=== PATIENT | male | born 1960 | race African-American/Black ===

== ENCOUNTER 2017-05-15 17:59 | Emergency (ER) | payer SELFPAY, OTHER ==
--- NOTE | ~2017-05-15 | EKG ---
PATIENT: APURVA PALOMO UNIT #: [id number] Ventricular Rate: 77 BPM Atrial Rate: 77 BPM P-R Interval: 178 ms QRS Duration: 102 ms Q-T Interval: 414 ms QTC Calculation(Bezet): 468 ms P [place]: -19 degrees Calculated R [place]: 13 degrees Calculated T [place]: 57 degrees Diagnosis Line: Normal sinus rhythm with sinus arrhythmia Diagnosis Line: Minimal voltage criteria for LVH, may be normal Diagnosis Line: variant Diagnosis Line: Nonspecific T wave abnormality Diagnosis Line: Prolonged QT Diagnosis Line: Abnormal ECG Diagnosis Line: When compared with ECG of 31-DEC-2014 08:21, Diagnosis Line: No significant change was found Diagnosis Line: Confirmed by DANILO ESTEVEZ MD ([id number]) on Diagnosis Line: 05/16/2017 5:16:01 PM INTERPRETING MD: [email or web address]
[~2017-05-15 17:59] MED LIST: AMLODIPINE BESYL5 MG PO; ASPIRIN81 M2; CLEOCIN HCL300 M1 PO; HYDRALAZINE HCL25 MG PO; HYDROCHLOROTHIA25 MG PO; JANUVIA PO; NO MEDICATIONS; ZESTRIL10 M1 PO
== END 2017-05-15 20:05 | disposition home or self-care (01) ==
LOC: CED 17:59
DX: I10 Essential (primary) hypertension (principal); Z76.0 Encounter for issue of repeat prescription; Z88.0 Allergy status to penicillin
CPT/HCPCS: 82947; 93005; 99284

== ENCOUNTER → 2017-06-15 | Outpatient (CLI) | payer SELFPAY | END | disposition home or self-care (01) | LOC: CECH 10:35 | DX: I10 Essential (primary) hypertension (principal); I34.0 Nonrheumatic mitral (valve) insufficiency; I36.1 Nonrheumatic tricuspid (valve) insufficiency; I34.1 Nonrheumatic mitral (valve) prolapse; I51.7 Cardiomegaly | CPT/HCPCS: 93306 ==